=== PATIENT | female | born 1935 | race Hispanic/Latino ===

== ENCOUNTER 2018-10-25 22:27 | Inpatient (IN) | payer OTHER, MEDICARE | END 2018-11-08 17:59 | disposition home or self-care (01) | LOC: EDH 22:27 → EDHIP 10-26 02:33 → 3CH 10-26 03:40 | PROC: 0WUF0JZ Supplement Abdominal Wall with Synthetic Substitute, Open Approach (ICD-10-PCS; principal; 2018-10-28 10:28) | DX: K43.6 Other and unspecified ventral hernia with obstruction, without gangrene (principal); K56.609 Unspecified intestinal obstruction, unspecified as to partial versus complete obstruction; D72.829 Elevated white blood cell count, unspecified; R11.2 Nausea with vomiting, unspecified ==